=== PATIENT | female | born 1950 | race Caucasian/White ===

== ENCOUNTER 2016-07-18 18:51 | Emergency (ER) | payer BC ==
[2016-07-18 18:55] VITALS: TEMP 98; BMI 30.9
--- NOTE | 2016-07-18 19:29 | PDOC ---
History of Present Illness - History of Present Illness Initial Comments: 07/18/16 19:52 The patient is a 65 year old female, kittitian speaking, with a significant past medical history of hyperthyroidism, hyperlipidemia, and depression, who presents to the emergency department with her for right shoulder pain since yesterday. The patient presents wearing a sling and states her right shoulder pain is localized to the front of her right shoulder. She reports the pain is worse with any movement of the right arm. She reports noticing some mild swelling to her right hand today. The patient presents wearing a sling. The patient reports taking two tylenol around 2pm today with minimal alleviation of pain. The patient denies numbness and tingling to her right upper extremity. She denies chest pain, shortness of breath, headache and dizziness. She denies fever, chills, nausea, vomit, diarrhea and constipation. She denies dysuria, frequency, urgency and hematuria. ; Allergies: NKDA Surgical Hx: Cholecystectomy Social history: denies toxic habits PCP - Dr. Chan <Katya Russ - Last Filed: 07/18/16 21:24> <Norma Weir - Last Filed: 07/18/16 21:32> - General Chief Complaint: Shoulder Dislocation Stated Complaint: RT SHOULDER PAIN Time Seen by Provider: 07/18/16 19:15 Past History <Katya Russ - Last Filed: 07/18/16 21:24> - Past Medical History Hypercholesterolemia: Yes Psychiatric Problems: Yes (DEPRESSION) Thyroid Disease: Yes (HYPOTHYROID) - Surgical History Cholecystectomy: Yes - Psycho/Social/Smoking Cessation Hx Suicidal Ideation: No Smoking Status: No Smoking History: Never smoked Number of Cigarettes Smoked Daily: 0 Information on smoking cessation initiated: No Hx Alcohol Use: No Substance Use Type: None <Norma Weir - Last Filed: 07/18/16 21:32> - Past Medical History Allergies/Adverse Reactions: Allergies Allergy/AdvReac Type Severity Reaction Status Date / Time No Known Allergies Allergy Verified 07/18/16 18:55 Home Medications: Ambulatory Orders Bupropion HCl [Wellbutrin Xl -] 150 mg PO DAILY 07/18/16 Citalopram Hydrobromide [Citalopram HBr] 20 mg PO DAILY 07/18/16 Methimazole 2.5 mg PO DAILY 07/18/16 Simvastatin 20 mg PO DAILY 07/18/16 Review of Systems - Review of Systems Able to Perform ROS?: Yes Comments:: 07/18/16 19:52 CONSTITUTIONAL: Absent: fever, no chills, no fatigue EYES: Absent: visual changes ENT: Absent: ear pain, no sore throat CARDIOVASCULAR: Absent: chest pain, no palpitations RESPIRATORY: Absent: cough, no SOB GI: Absent: abdominal pain, no nausea, no vomiting, no constipation, no diarrhea GENITOURINARY: Absent: dysuria, no frequency, no hematuria MUSCULOSKELETAL: (+) Right shoulder pain. Absent: back pain, no arthralgia, no myalgia SKIN: Absent: rash NEURO: Absent: headache <Katya Russ - Last Filed: 07/18/16 21:24> *Physical Exam - Vital Signs Last Vital Signs Temp Pulse Resp BP Pulse Ox 98 F 69 18 139/64 97 07/18/16 18:52 07/18/16 18:52 07/18/16 18:52 07/18/16 18:52 07/18/16 18:52 - Physical Exam Comments: 07/18/16 19:53 GENERAL: Well-appearing, well-nourished. No apparent distress. HEENT: Normocephalic, atraumatic. PERRL, EOM intact. CARDIOVASCULAR: Normal S1, S2. Regular rate and rhythm. PULMONARY: Clear to auscultation bilaterally. ABDOMEN: Soft, non-distended, non-tender. EXTREMITIES: (+) tenderness to palpation at the right anterior shoulder joint. ROM to right upper extremity deferred due to pain. No gross deformities appreciated. SKIN: Warm, dry. No rash NEUROLOGICAL: No focal neurological deficits. <Katya Russ - Last Filed: 07/18/16 21:24> - Vital Signs Last Vital Signs Temp Pulse Resp BP Pulse Ox 98 F 69 18 139/64 97 07/18/16 18:52 07/18/16 18:52 07/18/16 18:52 07/18/16 18:52 07/18/16 18:52 <Norma Weir - Last Filed: 07/18/16 21:32> ED Treatment Course - RADIOLOGY Radiograph Interpretation: 07/18/16 21:24 EXAM: Right shoulder x-ray was read by Kenny Cornejo MD at 21:05 EST HISTORY:Severe pain FINDINGS:3 views of the right shoulder joint demonstrate a 7 mm x 4 mm calcification adjacent to the greater tuberosity most consistent with calcific tendinitis. No acute osseous abnormality is seen or dislocation or subluxation. Minimal arthritic changes of the acromioclavicular joint is seen. IMPRESSION: Findings most consistent with calcific tendinitis <Katya Russ - Last Filed: 07/18/16 21:24> *DC/Admit/Observation/Transfer - Attestations Scribe Attestion: 07/18/16 19:54 Documentation prepared by Katya Russ, acting as medical physicist for Norma Weir MD <Katya Russ - Last Filed: 07/18/16 21:24> <Norma Weir - Last Filed: 07/18/16 21:32> Diagnosis at time of Disposition: Calcific tendinitis of right shoulder - Discharge Dispostion Disposition: HOME Condition at time of disposition: Stable - Referrals Referrals: Arabella Chan MD [Primary Care Provider] - - Patient Instructions Printed Discharge Instructions: DI for Calcific Tendonitis of the Shoulder Additional Instructions: -please follow up with an orthopedist -take the pain medication as directed -apply ice to the area -take aleve or motrin for 2 days then only as needed
[2016-07-18] MEDS ORDERED: IBUPROFEN 600 MG TABLET (FP) PO ONE ×2 (19:39→19:49)
[2016-07-18] MEDS ORDERED: morphine CARPU-JECT 2 MG/1 ML DISP.SYRIN IM ONE (19:39)
[2016-07-18] MEDS ORDERED: diazePAM 2 MG TABLET PO ONE (19:40)
[2016-07-18] MEDS ORDERED: morphine CARPU-JECT 2 MG/1 ML DISP.SYRIN ONE (19:48)
[2016-07-18] MEDS ORDERED: diazePAM 2 MG TABLET ONE (19:49)
[2016-07-18] MEDS ORDERED: OXYCODONE/APAP 5/325MG COMBO TABLET PO ONE (21:38)
[2016-07-18] MEDS ORDERED: OXYCODONE/APAP 5/325MG COMBO TABLET ONE (21:41)
[2016-07-18 21:47] VITALS: BP 132/78; PULSE 78
== END 2016-07-18 21:47 | disposition home or self-care (01) ==
LOC: JER 18:51
DX: M75.31 Calcific tendinitis of right shoulder (principal); E78.00 Pure hypercholesterolemia, unspecified; E03.9 Hypothyroidism, unspecified; F32.9 Major depressive disorder, single episode, unspecified
CPT/HCPCS: 71010-TC; 73030-TC-RT; 73060-TC-RT; 99283-25

== ENCOUNTER 2016-08-07 14:38 | Emergency (ER) | payer BC ==
[2016-08-07 14:56] VITALS: BP 148/63; TEMP 99.1; BMI 31.8
--- NOTE | 2016-08-07 15:56 | PDOC ---
History of Present Illness - General History Source: Patient Exam Limitations: No Limitations - History of Present Illness Initial Comments: 08/07/16 18:10 The patient is a 65 year old, Icelandic speaking, female with a significant past medical history of hyperlipidemia, and hyperthyroidism, presenting to the Emergency Department with a cough, and intermittent chest discomfort for 2 weeks. The patient admits that the chest discomfort is at the mid chest exacerbated by coughing. The patient endorses intermittent production of yellowish sputum only occasionally, but denies hemoptysis with her cough. She also admits to some back pain. She reports seeing Dr. Hdez on Tuesday and was prescribed Prednisone and albuterol, with little improvement. She went back to Dr. Hdez yesterday and was prescribed Levaquin, again with little improvement. She was told to come to the ED if her symptoms did not resolve. The patients also had similar symptoms but had largely resolved. The pt denies any GONZALEZ, leg swelling. The patient denies fever, or chills. Patient denies history of smoking. Patient denies palpitation, or diaphoresis. Patient denies nausea, vomiting, and diarrhea. Patient denies nasal congestion, or sore throat. Past Medical Hx: depression <Haley Aguilar - Last Filed: 08/07/16 18:10> <Jeff Bush - Last Filed: 08/07/16 19:18> - General Chief Complaint: Respiratory Stated Complaint: SOB, WHEEZING (PCP SENT) Time Seen by Provider: 08/07/16 15:11 Past History <Haley Aguilar - Last Filed: 08/07/16 18:10> - Past Medical History Hypercholesterolemia: Yes Psychiatric Problems: Yes (DEPRESSION) Thyroid Disease: Yes (HYPOTHYROID) - Surgical History Cholecystectomy: Yes - Immunization History Immunization Up to Date: Yes - Psycho/Social/Smoking Cessation Hx Suicidal Ideation: No Smoking Status: No Smoking History: Never smoked Number of Cigarettes Smoked Daily: 0 Hx Alcohol Use: No Drug/Substance Use Hx: No Substance Use Type: None <Jeff Bush - Last Filed: 08/07/16 19:18> - Past Medical History Allergies/Adverse Reactions: Allergies Allergy/AdvReac Type Severity Reaction Status Date / Time No Known Allergies Allergy Verified 08/07/16 14:52 Home Medications: Ambulatory Orders Bupropion HCl [Wellbutrin Xl -] 150 mg PO DAILY 07/18/16 Citalopram Hydrobromide [Citalopram HBr] 20 mg PO DAILY 07/18/16 Ibuprofen [Motrin -] 600 mg PO TID PRN #21 tablet 07/18/16 Methimazole 2.5 mg PO DAILY 07/18/16 Simvastatin 20 mg PO DAILY 07/18/16 Guaifenesin AC [Robitussin AC -] 5 ml PO TID PRN #1 bottle MDD 15 08/07/16 Review of Systems - Review of Systems Able to Perform ROS?: Yes Comments:: 08/07/16 18:11 CONSTITUTIONAL: No reported: Fever, Chills, Diaphoresis, Generalized Weakness, Malaise, Loss of Appetite HEENT: No reported: Rhinorrhea, Nasal Congestion, Throat Pain, Throat Swelling, Difficulty Swallowing, Mouth Swelling, Ear Pain, Eye Pain, Visual Changes CARDIOVASCULAR: Reported: + Chest discomfort No reported: Syncope, Palpitations, Irregular Heart Rate, Lightheadedness, Peripheral Edema RESPIRATORY: Reported: + Cough, No reported: Shortness of Breath, SOB with Exertion, Wheezing, Stridor, Hemoptysis GASTROINTESTINAL: No reported: Abdominal pain, Abdominal Distension, Nausea, Vomiting, Diarrhea, Constipation, Melena, Hematochezia GENITOURINARY: No reported: Dysuria, Frequency, Urgency, Hesitancy, Flank Pain, Genital Pain MUSCULOSKELETAL: Reported: + Back pain No reported: Myalgia, Arthralgia, Joint Swelling, Neck Pain SKIN: No reported: Rash, Itching, Pallor HEMATOLOGIC/IMMUNOLOGIC: No reported: Easy Bleeding, Easy Bruising, Lymphadenopathy, Frequent infections ENDOCRINE: No reported: Unexplained Weight Gain, Unexplained Weight Loss, Heat Intolerance , Cold Intolerance NEUROLOGIC: No reported: Headache, Focal Weakness, Paresthesias, Vertigo, Lightheadedness, Unsteady Gait, Seizure, Mental Status Changes, Incontinence PSYCHIATRIC: No reported: Anxiety, Depression <Haley Aguilar - Last Filed: 08/07/16 18:10> *Physical Exam - Vital Signs Last Vital Signs Temp Pulse Resp BP Pulse Ox 99.1 F 75 20 148/63 96 08/07/16 14:52 08/07/16 16:22 08/07/16 14:52 08/07/16 14:52 08/07/16 16:22 - Physical Exam Comments: 08/07/16 18:11 GENERAL: The patient is awake, alert, and fully oriented, Nontoxic - in no acute distress. HEAD: Normocephalic, atraumatic. EYES: extraocular movements intact, sclera anicteric, conjunctiva clear. ENT: Normal voice, Moist mucous membranes. NECK: Normal range of motion, No JVD LUNGS:mild rhonchi, speaking complete setences without respiratory distress HEART: Regular rate and rhythm, normal S1 and S2 without murmur, rub or gallop. ABDOMEN: Soft, nontender, normoactive bowel sounds. No guarding, no rebound. No masses. No CVA tenderness EXTREMITIES: Normal range of motion, no edema. No clubbing or cyanosis. No cords , erythema, or tenderness. Negative homans sign. NEUROLOGICAL: No facial asymmetry, Normal speech, normal gait. PSYCH: Normal mood, normal affect. SKIN: Warm, Dry, normal turgor. <Haley Aguilar - Last Filed: 08/07/16 18:10> - Vital Signs Last Vital Signs Temp Pulse Resp BP Pulse Ox 99.1 F 81 20 148/63 96 08/07/16 14:52 08/07/16 14:52 08/07/16 14:52 08/07/16 14:52 08/07/16 14:52 <Jeff Bush - Last Filed: 08/07/16 19:18> Heart Score/ECG Review - ECG Impressions Comment:: 08/07/16 19:18 Twelve-lead EKG was performed and reviewed by me. There is normal sinus rhythm with a normal rate. Rate of 76 The axis is normal. The intervals are normal. There is normal R wave progression There are no ST or T wave abnormalities. Impression: Normal twelve-lead EKG <Jeff Bush - Last Filed: 08/07/16 19:18> ED Treatment Course - LABORATORY CBC & Chemistry Diagram: 08/07/16 16:50 08/07/16 16:50 - ADDITIONAL ORDERS Additional order review: Laboratory Results 08/07/16 16:50 Sodium Cancelled Potassium Cancelled Chloride Cancelled Carbon Dioxide Cancelled Anion Gap Cancelled BUN Cancelled Creatinine Cancelled Creat Clearance w eGFR Cancelled Random Glucose Cancelled Calcium Cancelled Total Bilirubin Cancelled AST Cancelled ALT Cancelled Alkaline Phosphatase Cancelled Creatine Kinase Cancelled Troponin I Cancelled B-Natriuretic Peptide Cancelled Total Protein Cancelled Albumin Cancelled 08/07/16 16:50 RBC 4.64 MCV 87.2 MCHC 33.4 RDW 13.5 MPV 8.4 Neutrophils % 74.3 D Lymphocytes % 20.8 D Monocytes % 4.5 Eosinophils % 0.0 D Basophils % 0.4 - Medications Given in the ED: ED Medications Discontinued Medications Generic Name Dose Route Start Last Admin Trade Name Husam PRN Reason Stop Dose Admin Albuterol/Ipratropium 1 amp 08/07/16 15:58 08/07/16 16:10 Duoneb - NEB 08/07/16 15:59 1 amp ONCE ONE Administration Guaifenesin/Codeine Phosphate 10 ml 08/07/16 17:45 08/07/16 17:50 Robitussin Ac - PO 08/07/16 17:46 10 ml ONCE ONE Administration <Haley Aguilar - Last Filed: 08/07/16 18:10> - LABORATORY CBC & Chemistry Diagram: 08/07/16 16:50 08/07/16 18:00 <Jeff Bush - Last Filed: 08/07/16 19:18> Medical Decision Making - Medical Decision Making 08/07/16 16:23 65y F presents with 2 weeks of chest congestion/cough without fever/chills, intermittently productive of yellowish phlegm. She went to her PMD who gave her nebs, steroids, there was no improvement so he added on levaquin on . Pt stillhad not had much improvement so came to the ED for evaluation. Pts exam is benign with clear lungs. vitals unremarakble. suspect uri as also had similar sypmtoms but is feeling improved considered possibel PE - however pt is wells criteria low risk will obtain cxr to r/o pna will obtain blood work will give her a neb will reassess A portion of this note was documented by scribe services under my direction. I have reviewed the details of the note, within reason, and agree with the documentation with the following case summary and management plan written by me 08/07/16 19:01 pts cbc unremarakble cmp pending cxr shows possible early infiltrate in the RLL vs atelectasis pt was able to abmulate around the ED without any sob/gonzalez. as lungs are clear, pt is afebrile and has no leukocytosis and improved after robitussin will d/c the pt if cmp is normal to fu with PMD pt is on levaqauin will have her finish her rx and fu with dr. hdez on tuesday. will sign out to dr. marmolejo to fu with cmp. <Jeff Bush - Last Filed: 08/07/16 19:18> *DC/Admit/Observation/Transfer - Attestations Scribe Attestion: 08/07/16 18:11 Documentation prepared by Haley Aguilar, acting as medical laboratory technologist for Jeff Bush MD. <Haley Aguilar - Last Filed: 08/07/16 18:10> - Discharge Dispostion Admit: No <Jeff Bush - Last Filed: 08/07/16 19:18> Diagnosis at time of Disposition: Cough Pneumonia Qualifiers: Pneumonia type: due to unspecified organism Laterality: right Lung location: lower lobe of lung Qualified Code(s): J18.9 - Pneumonia, unspecified organism - Prescriptions Prescriptions: Guaifenesin AC [Robitussin AC -] 5 ml PO TID PRN #1 bottle MDD 15 PRN Reason: Cough - Referrals Referrals: Arabella Hdez MD [Primary Care Provider] - - Patient Instructions Printed Discharge Instructions: DI for Pneumonia -- Adult Additional Instructions: Return to the emergency department immediately with ANY new, persistent or worsening symptoms including any fever, shortness of breath, hemoptysis, or other concerns. Continue your medications as prescribed by your doctor. You MUST call and follow up with your doctor tomorrow for further evaluation of your symptoms. Results were discussed with you. Please make sure your doctor reviews the results of your emergency evaluation. If you had any xrays during your visit, it was read preliminarily by myself, a Radiologist will review it and if there are any additional findings we will call you.
[2016-08-07] MEDS ORDERED: ALBUTEROL SO4 2.5/IPRATROPIUM 0.5 INH SOL 3 ML VIAL.NEB. NEB ONE (15:58)
[2016-08-07 16:24] VITALS: PULSE 75
[2016-08-07 17:02] LABS: BASOPHIL 0.4 % (0-2.0); MEAN PLT VOLUME 8.4 fl (7.5-11.1)
[2016-08-07 17:06] LABS: MCH 29.2 pg (25.7-33.7); MCHC 33.4 g/dl (32.0-36.0); MEAN CELL VOLUME 87.2 fl (80-96); NEUTROPHILS 74.3 % (42.8-82.8); PLATELET COUNT 239 K/MM3 (134-434); RDW 13.5 % (11.6-15.6); WHITE BLOOD COUNT 9.4 K/mm3 (4.0-10.0)
[2016-08-07] MEDS ORDERED: guaiFENesin/CODEINE 10 ML UNIT-DOSE CUPS PO ONE (17:45)
[2016-08-07] MEDS ORDERED: guaiFENesin 200 MG/10 ML 10 ML UNIT-DOSE CUPS ONE (17:50)
[2016-08-07 18:09] LABS: VENOUS BLOOD GAS HCO3 25.4 meq/L (19-25); VENOUS PH 7.41 (7.32-7.42)
[2016-08-07 18:30] LABS: CALCIUM 9.3 mg/dL (8.5-10.1); CREATININE 0.9 mg/dL (0.55-1.02)
--- NOTE | 2016-08-07 20:56 | EKG ---
Test Reason : Blood Pressure : / mmHG Vent. Rate : 076 BPM Atrial Rate : 076 BPM P-R Int : 140 ms QRS Dur : 082 ms QT Int : 390 ms P-R-T Axes : 038 027 010 degrees QTc Int : 438 ms NORMAL SINUS RHYTHM NORMAL ECG WHEN COMPARED WITH ECG OF 16-NOV-2011 16:31, NO SIGNIFICANT CHANGE WAS FOUND Confirmed by TELMA STUBBS MD ([id number]) on 08/07/2016 8:56:29 PM Referred By: Confirmed By:TELMA STUBBS MD
== END 2016-08-07 19:18 | disposition home or self-care (01) ==
LOC: JER 14:38
PROC: 3E0F7GC Introduction of Other Therapeutic Substance into Respiratory Tract, Via Natural or Artificial Opening (ICD-10-PCS; principal; 2016-08-07)
DX: J18.9 Pneumonia, unspecified organism (principal); E05.90 Thyrotoxicosis, unspecified without thyrotoxic crisis or storm; E78.00 Pure hypercholesterolemia, unspecified; E78.5 Hyperlipidemia, unspecified; F32.9 Major depressive disorder, single episode, unspecified
CPT/HCPCS: 36415; 71010-TC; 80048; 82803; 85025; 93005; 93010; 99282-25

== ENCOUNTER 2018-11-02 05:31 | Day surgery (SDC) | payer OTHER | END 2018-11-02 12:00 | disposition home or self-care (01) | LOC: JASU-SURG 05:31 ==